=== PATIENT | female | born 1960 | race Caucasian/White ===

== ENCOUNTER → 2016-10-15 | Outpatient (CLI) | payer OTHER ==
--- NOTE | 2016-10-15 13:59 | DX ---
Bilateral hands, 3 views each side. HISTORY: Evaluate for inflammatory arthropathy. FINDINGS: Both hands are normal in appearance. Alignment is normal bilaterally, and joint spaces are maintained. No erosive changes identified. No fracture or posttraumatic deformity noted. Soft tissue structures appear normal. IMPRESSION: 1. Unremarkable bilateral hand radiographs.
== END ==
LOC: BMCIMAGING 13:27
PROVIDERS: ATTEND Physician Assistant
DX: M79.641 Pain in right hand (principal); M79.642 Pain in left hand

== ENCOUNTER → 2017-04-09 | Outpatient (CLI) | payer OTHER | LOC: BMCIMAGING 14:34 | PROVIDERS: ATTEND Internal Medicine | DX: Z12.31 Encounter for screening mammogram for malignant neoplasm of breast (principal) | CPT/HCPCS: G0202 ==

== ENCOUNTER → 2017-05-20 | Outpatient (CLI) | payer MEDICAID, OTHER | LOC: BMCIMAGING 13:41 | PROVIDERS: ATTEND Podiatrist Foot & Ankle Surgery | DX: Z13.828 Encounter for screening for other musculoskeletal disorder (principal) ==

== ENCOUNTER → 2018-03-11 | Outpatient (CLI) | payer OTHER | LOC: BMCIMAGING 15:02 | PROVIDERS: ATTEND Nurse Practitioner Adult Health | DX: R22.42 Localized swelling, mass and lump, left lower limb (principal); M25.861 Other specified joint disorders, right knee ==

== ENCOUNTER → 2018-06-17 | Outpatient (CLI) | payer OTHER | LOC: BMCIMAGING 07:13 | PROVIDERS: ATTEND Internal Medicine | DX: R10.2 Pelvic and perineal pain (principal); Z78.0 Asymptomatic menopausal state ==

== ENCOUNTER → 2018-12-14 | Outpatient (CLI) | payer OTHER | LOC: BMCIMAGING 14:17 | PROVIDERS: ATTEND Internal Medicine | DX: M25.562 Pain in left knee (principal) ==

== ENCOUNTER → 2019-02-07 | Outpatient (CLI) | payer OTHER | LOC: BMCIMAGING 07:33 | PROVIDERS: ATTEND Internal Medicine | DX: Z12.31 Encounter for screening mammogram for malignant neoplasm of breast (principal) ==